=== PATIENT | male | born 1990 | race Caucasian/White ===

== ENCOUNTER 2017-06-03 13:58 | Inpatient (IN) | payer MEDICAID ==
[~2017-06-03] VITALS: Ht 177.8 cm; Wt 82.3 kg
[2017-06-03 14:35] LABS: BASOPHILS % (AUTO) 0.2 % (0-1); EOSINOPHILS % (AUTO) 0.2 % (0-6); HEMOGLOBIN 15.9 g/dl (14.0-17.9); LYMPHOCYTES # (AUTO) 1.1 X10'3 (1.1-4.8); LYMPHOCYTES % (AUTO) 7.8 % (21-51); MEAN CORPUSCULAR HEMOGLOBIN 31.7 PG (27.0-31.0); MEAN CORPUSCULAR HGB CONC 34.7 % (33.0-36.5); MEAN CORPUSCULAR VOLUME 91.4 FL (78-98); MEAN PLATELET VOLUME 8.4 FL (7.4-10.4); MONOCYTES # (AUTO) 0.8 X10'3 (0-0.9); MONOCYTES % (AUTO) 5.6 % (2-12); NEUTROPHILS # (AUTO) 11.9 X10'3 (1.8-7.7); NEUTROPHILS % (AUTO) 86.2 % (42-75); PLATELET COUNT 334 X10'3 (140-440); RED BLOOD COUNT 5.03 X10'6 (4.70-6.10); RED CELL DISTRIBUTION WIDTH 12.9 % (11.5-14.5); WHITE BLOOD COUNT 13.8 X10'3 (4.5-11.0)
[2017-06-03 14:36] LABS: CLARITY,URINE CLEAR (Clear); COLOR,URINE YELLOW (Yellow); GLUCOSE, URINE NEGATIVE (Neg); KETONES,URINE NEGATIVE (Neg); LEUKOCYTE ESTERASE ,URINE NEGATIVE (Neg); NITRITES, URINE NEGATIVE (Neg); OCCULT BLOOD,URINE TRACE-INTACT (Neg); PH,URINE 5.5 (4.8-8.0); PROTEIN,URINE 30 mg/dl (Neg); UROBILINOGEN,URINE 0.2 E.U/dL (0.2-1.0)
[2017-06-03 14:41] LABS: UA COLLECTION TYPE VOIDED
[2017-06-03 14:42] LABS: BACTERIA,URINE NONE SEEN /HPF (Neg); MUCUS STRANDS NONE SEEN /LPF (Neg); RBC,URINE 0-2 /HPF (0-2); SQUAMOUS EPITHELIAL CELL,UR FEW /LPF (FEW); WBC,URINE NONE SEEN /HPF (0-4)
[2017-06-03 14:43] LABS: PROTHROMBIN TIME 10.3 SECONDS (9.0-12.0)
[2017-06-03 14:49] LABS: ALANINE AMINOTRANSFERASE 25 U/L (12-78); ALBUMIN 4.4 G/DL (3.4-5.0); ALBUMIN/GLOBULIN RATIO 1.1 (1.1-1.5); ALKALINE PHOSPHATASE 90 IU/L (46-116); AMYLASE 68 U/L (25-115); ANION GAP 6 (8-16); ASPARTATE AMINO TRANSFERASE 12 U/L (10-37); BILIRUBIN,TOTAL 0.8 MG/DL (0.1-1.0); BLOOD UREA NITROGEN 17 MG/DL (7-18); BUN/CREATININE RATIO 19.1 (5.4-32.0); CALCIUM 9.7 MG/DL (8.5-10.1); CHLORIDE 107 MMOL/L (99-107); CREATININE 0.89 MG/DL (0.60-1.10); GLUCOSE 105 MG/DL (70-104); LIPASE 134 U/L (73-393); SODIUM 143 MMOL/L (135-145); TOTAL CARBON DIOXIDE 30.3 MMOL/L (24-32); TOTAL PROTEIN 8.3 G/DL (6.4-8.2); eGFR > 90 ML/MIN
[2017-06-03 15:29] LABS: URINE AMPHETAMINE SCREEN NEGATIVE (Neg); URINE BARBITUATE SCREEN NEGATIVE (Neg); URINE BENZODIAZEPINES SCREEN NEGATIVE (Neg); URINE CANNABINOID SCREEN NEGATIVE (Neg); URINE COCAINE SCREEN NEGATIVE (Neg); URINE METHADONE SCREEN NEGATIVE (Neg); URINE OPIATE SCREEN NEGATIVE (Neg); URINE PHENCYCLIDINE SCREEN NEGATIVE (Neg)
[2017-06-03] MEDS ORDERED: pantoprazole 40 MG vial IV ONE (15:45)
[2017-06-03] MEDS: pantoprazole 40MG/NS 100ML BAG 100 ML IV SCH ×2 (16:01→22:35)
[2017-06-03] MEDS ORDERED: magnesium hydroxide 30ml (MOM) UD suspension PO PRN (16:10)
[2017-06-03] MEDS ORDERED: acetaminophen 325mg tablet PO PRN (16:10)
[2017-06-03] MEDS ORDERED: ondansetron/PF 4mg/2ml inj IV PRN (16:10)
[2017-06-03] MEDS ORDERED: mag hydrox/Alum hydrox/simeth 30ml oral suspension PO PRN (16:10)
[2017-06-03] MEDS ORDERED: ondansetron/PF 4mg/2ml inj IV ONE (17:10)
[2017-06-03] MEDS ORDERED: HYDROmorphone 1 mg/ml syringe IV ONE (17:10)
[2017-06-03] MEDS: normal saline 1000ml 1,000 ML IV SCH (17:56)
[2017-06-03] MEDS ORDERED: acetaminophen 1,000mg/100ml IV 100 ML IV STA (18:01)
[2017-06-03] MEDS ORDERED: HYDROcodone/acetaminophen 10/325mg tab PO ONE (18:55)
[2017-06-04] MEDS: pantoprazole 40MG/NS 100ML BAG 100 ML IV SCH ×3 (00:56→11:31)
[2017-06-04] MEDS: normal saline 1000ml 1,000 ML IV SCH (02:08)
[2017-06-04] MEDS ORDERED: HYDROcodone/acetaminophen 10/325mg tab PO ONE (02:50)
[2017-06-04 06:49] LABS: OCCULT BLOOD STOOL NEGATIVE (Neg)
[2017-06-04] MEDS ORDERED: normal saline 1000ml 1,000 ML IV SCH (07:04)
[2017-06-04] MEDS ORDERED: LIDOcaine Viscous 15ml cup PO ONE (07:05)
[2017-06-04] MEDS ORDERED: MIDAZolam 5mg/5ml vial IV PRN ×2 (07:05)
[2017-06-04] MEDS ORDERED: fentaNYL/PF 50MCG/1 ML 2ML syringe IV PRN ×2 (07:05)
[2017-06-04] MEDS ORDERED: simethicone 40mg/0.6ml oral drops 30ml MC ONE (07:05)
[2017-06-04 07:45] VITALS: BP 140/84
[2017-06-04] MEDS ORDERED: MIDAZolam 5mg/ml 2ml vial ONE (07:46)
[2017-06-04] MEDS ORDERED: LIDOcaine Viscous 15ml cup ONE (07:46)
[2017-06-04] MEDS ORDERED: fentaNYL/PF 50MCG/1 ML 2ML syringe ONE (07:46)
[2017-06-04 09:00] VITALS: BP 133/80
[2017-06-04 09:10] VITALS: BP 128/67
[2017-06-04 09:20] VITALS: BP 122/68
[2017-06-04 09:25] LABS: CRYPTOSPORIDIUM AG NEGATIVE (Neg); GIARDIA LAMBLIA AG NEGATIVE (Neg)
[2017-06-04 09:30] VITALS: BP 124/73
[2017-06-04 12:11] VITALS: BP 137/78
[2017-06-04] MEDS ORDERED: PANT-47 PO (12:32)
== END 2017-06-04 13:49 | disposition home or self-care (01) | DRG 241 ==
LOC: ER 13:59 → ED HOLD 16:08 → EDBEDREQSVC 17:47 → EDBEDREQ 17:47 → EDBEDREQTM 17:47
PROVIDERS: ADMIT Internal Medicine; ATTEND Family Medicine
PROC: 0DB58ZX Excision of Esophagus, Via Natural or Artificial Opening Endoscopic, Diagnostic (ICD-10-PCS; principal; 2017-06-04)
PROC: 0DB68ZX Excision of Stomach, Via Natural or Artificial Opening Endoscopic, Diagnostic (ICD-10-PCS; 2017-06-04)
DX: K29.70 Gastritis, unspecified, without bleeding (principal); I10 Essential (primary) hypertension; F32.9 Major depressive disorder, single episode, unspecified; K20.9 Esophagitis, unspecified; D72.829 Elevated white blood cell count, unspecified; F41.1 Generalized anxiety disorder; G89.29 Other chronic pain; J45.909 Unspecified asthma, uncomplicated; K31.9 Disease of stomach and duodenum, unspecified; Z90.49 Acquired absence of other specified parts of digestive tract; Z88.6 Allergy status to analgesic agent; Z87.891 Personal history of nicotine dependence; Z82.49 Family history of ischemic heart disease and other diseases of the circulatory system
CPT/HCPCS: 36415; 43239; 80053; 80305; 80320; 81001; 82150; 82272; 83690; 85025; 85610; 87045; 87046; 87328; 87329; 87336; 96374; 99285; A4620; C9113; G0500; J0131; J2250; J2405; J3010; J7030

== ENCOUNTER 2017-06-06 13:30 | Emergency (ER) | payer MEDICAID ==
[~2017-06-06] VITALS: Ht 180.3 cm; Wt 81.0 kg
[~2017-06-06 13:30] MED LIST: PANT-47 PO
[2017-06-06 15:24] VITALS: BP 156/106
[2017-06-06] MEDS ORDERED: simethicone 125mg capsule PO SCH (15:35)
[2017-06-06] MEDS ORDERED: LORazepam 1 MG tablet PO ONE (15:35)
[2017-06-06] MEDS ORDERED: HYDROcodone/acetaminophen 10/325mg tab PO ONE (15:35)
[2017-06-06] MEDS ORDERED: sucralfate 1 gm tablet PO ONE (15:35)
[2017-06-06] MEDS ORDERED: SUCR1ORA2 PO (16:07)
== END 2017-06-06 16:29 | disposition home or self-care (01) ==
LOC: ER 13:30
DX: R10.13 Epigastric pain (principal); R19.7 Diarrhea, unspecified; I10 Essential (primary) hypertension; J45.909 Unspecified asthma, uncomplicated; Z88.5 Allergy status to narcotic agent; Z79.899 Other long term (current) drug therapy
CPT/HCPCS: 71046; 99284

== ENCOUNTER 2017-06-19 01:38 | Emergency (ER) | payer MEDICAID ==
[~2017-06-19] VITALS: Ht 177.8 cm; Wt 77.3 kg
[~2017-06-19 01:38] MED LIST changes: +SUCR1ORA2 PO
[2017-06-19 01:42] VITALS: BP 154/94
== END 2017-06-19 03:09 | disposition home or self-care (01) ==
LOC: ER 01:39
DX: F41.9 Anxiety disorder, unspecified (principal); I10 Essential (primary) hypertension; J45.909 Unspecified asthma, uncomplicated; Z88.5 Allergy status to narcotic agent; Z79.899 Other long term (current) drug therapy
CPT/HCPCS: 93005; 99284

== ENCOUNTER 2017-07-12 21:01 | Emergency (ER) | payer MEDICAID | END 2017-07-13 | disposition left against medical advice (07) | LOC: ER 21:02 | DX: R00.9 Unspecified abnormalities of heart beat (principal); Z53.21 Procedure and treatment not carried out due to patient leaving prior to being seen by health care provider ==

== ENCOUNTER 2017-07-14 01:30 | Emergency (ER) | payer MEDICAID ==
[~2017-07-14] VITALS: Ht 177.8 cm; Wt 82.0 kg
[2017-07-14 01:35] VITALS: BP 149/97
[2017-07-14] MEDS ORDERED: LORA-269 PO (02:13)
== END 2017-07-14 03:03 | disposition home or self-care (01) ==
LOC: ER 01:31
DX: R00.2 Palpitations (principal); J45.909 Unspecified asthma, uncomplicated; F17.200 Nicotine dependence, unspecified, uncomplicated; I10 Essential (primary) hypertension; Z88.5 Allergy status to narcotic agent; Z56.0 Unemployment, unspecified
CPT/HCPCS: 93005; 99284

== ENCOUNTER 2017-09-13 20:39 | Emergency (ER) | payer MEDICAID ==
[~2017-09-13] VITALS: Ht 177.8 cm; Wt 86.0 kg
[~2017-09-13 20:39] MED LIST changes: +LORA-269 PO; -SUCR1ORA2 PO
[2017-09-13 22:40] VITALS: BP 156/91
[2017-09-13 22:58] LABS: BASOPHILS % (AUTO) 0.1 % (0-1); EOSINOPHILS # (AUTO) 0.1 X10'3 (0-0.9); EOSINOPHILS % (AUTO) 1.6 % (0-6); HEMATOCRIT 42.7 % (42.0-52.0); HEMOGLOBIN 14.8 g/dl (14.0-17.9); LYMPHOCYTES # (AUTO) 2.2 X10'3 (1.1-4.8); LYMPHOCYTES % (AUTO) 24.8 % (21-51); MEAN CORPUSCULAR HEMOGLOBIN 31.5 PG (27.0-31.0); MEAN CORPUSCULAR HGB CONC 34.7 % (33.0-36.5); MEAN CORPUSCULAR VOLUME 90.8 FL (78-98); MEAN PLATELET VOLUME 8.6 FL (7.4-10.4); MONOCYTES # (AUTO) 0.6 X10'3 (0-0.9); MONOCYTES % (AUTO) 6.5 % (2-12); NEUTROPHILS # (AUTO) 5.9 X10'3 (1.8-7.7); PLATELET COUNT 249 X10'3 (140-440); RED CELL DISTRIBUTION WIDTH 13.6 % (11.5-14.5); WHITE BLOOD COUNT 8.8 X10'3 (4.5-11.0)
[2017-09-13 23:08] LABS: PROTHROMBIN TIME 10.7 SECONDS (9.0-12.0)
[2017-09-13 23:14] LABS: ALANINE AMINOTRANSFERASE 24 U/L (12-78); ALBUMIN 3.9 G/DL (3.4-5.0); ALBUMIN/GLOBULIN RATIO 1.2 (1.1-1.5); ALKALINE PHOSPHATASE 72 IU/L (46-116); ANION GAP 6 (8-16); ASPARTATE AMINO TRANSFERASE 13 U/L (10-37); BILIRUBIN,TOTAL 0.4 MG/DL (0.1-1.0); BLOOD UREA NITROGEN 20 MG/DL (7-18); BUN/CREATININE RATIO 21.1 (5.4-32.0); CALCIUM 8.9 MG/DL (8.5-10.1); CHLORIDE 106 MMOL/L (99-107); CREATININE 0.95 MG/DL (0.60-1.10); GLUCOSE 89 MG/DL (70-104); POTASSIUM 3.7 MMOL/L (3.5-5.1); SODIUM 142 MMOL/L (135-145); TOTAL CARBON DIOXIDE 29.9 MMOL/L (24-32); TOTAL PROTEIN 7.1 G/DL (6.4-8.2); eGFR > 90 ML/MIN
[2017-09-13] MEDS ORDERED: HYDR25SU32 RC (23:20)
== END 2017-09-14 01:08 | disposition home or self-care (01) ==
LOC: ER 20:40
DX: K92.1 Melena (principal); R10.9 Unspecified abdominal pain; M54.2 Cervicalgia; F11.90 Opioid use, unspecified, uncomplicated; I10 Essential (primary) hypertension; J45.909 Unspecified asthma, uncomplicated; Z88.5 Allergy status to narcotic agent; Z79.899 Other long term (current) drug therapy; Z90.49 Acquired absence of other specified parts of digestive tract; Z56.0 Unemployment, unspecified
CPT/HCPCS: 36415; 80053; 85025; 85610; 99284

== ENCOUNTER 2017-12-06 13:56 | Emergency (ER) | payer MEDICAID ==
[~2017-12-06] VITALS: Ht 610.5 cm; Wt 88.7 kg
[~2017-12-06 13:56] MED LIST changes: +HYDR25SU32 RC
[2017-12-06 14:15] VITALS: BP 154/107
[2017-12-06] MEDS ORDERED: PENI250T2 PO (14:27)
[2017-12-06] MEDS ORDERED: IBUP-1984 PO (14:27)
== END 2017-12-06 14:42 | disposition home or self-care (01) ==
LOC: ER 13:57
DX: K02.9 Dental caries, unspecified (principal); H92.01 Otalgia, right ear; I10 Essential (primary) hypertension; J45.909 Unspecified asthma, uncomplicated; F11.90 Opioid use, unspecified, uncomplicated; Z88.6 Allergy status to analgesic agent; Z90.49 Acquired absence of other specified parts of digestive tract
CPT/HCPCS: 99283

== ENCOUNTER 2018-05-06 01:19 | Emergency (ER) | payer MEDICAID ==
[~2018-05-06] VITALS: Ht 177.8 cm; Wt 84.1 kg
== END 2018-05-06 01:41 | disposition left against medical advice (07) ==
LOC: ER 01:19
DX: R11.10 Vomiting, unspecified (principal); R42 Dizziness and giddiness; R52 Pain, unspecified; R61 Generalized hyperhidrosis; Z53.21 Procedure and treatment not carried out due to patient leaving prior to being seen by health care provider

== ENCOUNTER 2018-05-30 00:38 | Emergency (ER) | payer MEDICAID ==
[~2018-05-30] VITALS: Ht 177.8 cm; Wt 83.0 kg
[2018-05-30 00:41] VITALS: BP 146/96
[2018-05-30] MEDS ORDERED: hydrOXYzine 10 MG tablet PO PRN (01:25)
[2018-05-30] MEDS ORDERED: LORazepam 0.5 MG tablet PO PRN (01:25)
--- NOTE | 2018-05-30 01:50 | NUR ---
PT IN ED ROOM 12 CONTINUALLY GOT UP TO THE GLASS TO TALK TO THE DOCTOR. MD ASKED ME TO MEDICATE THE PATIENT, I INFORMED THE MD THAT THE MEDICATION IS BEING BROUGHT FROM THE PHARMACY AND IS CURRENTLY NOT AVAILIBLE BUT I WILL GIVE IT TO HIM WHEN WE GET IT. I HEAR THE PATIENT TALKING TO THE DOCTOR AFTER HE ASKED HIM TO STOP SO HE CAN WORK UNINTERRUPTED. I KINDLY ASKED THE PATIENT TO STAY IN HIS ROOM BECAUSE THE DOCTOR WAS WORKING, THE PATIENT BECAME AGGITATED, TURNED AROUND AND WALKED TO HIS ROOM AND GRABBED HIS BAGS, PT STATED "THIS PERSON (ME) IS VERY UNPROFFESSIONAL AND I DON'T WANT TO BE AROUND HIM". MD ZIMMERMAN ASKED THE PATIENT TO RETURN TO HIS ROOM FOR HIS MEDICATIONS BUT HE REFUSED, AND SAID "I WILL WAIT IN THE LOBBY". PT PROMPTLY WALKED OUT OF THE ED AND EXITED THE BUILDING WITHOUT ANY ESCORT OR REQUEST FROM MYSELF OR SECURITY.
== END 2018-05-30 01:56 | disposition home or self-care (01) ==
LOC: ER 00:39
DX: F41.9 Anxiety disorder, unspecified (principal); I10 Essential (primary) hypertension; J45.909 Unspecified asthma, uncomplicated; Z90.49 Acquired absence of other specified parts of digestive tract; Z88.5 Allergy status to narcotic agent; Z79.899 Other long term (current) drug therapy
CPT/HCPCS: 99284